=== PATIENT | male | born 1965 | race Caucasian/White ===

== ENCOUNTER 2018-02-17 18:46 | Emergency (ER) | payer MEDICAID ==
[~2018-02-17] VITALS: Ht 175.3 cm; Wt 77.1 kg
[2018-02-17 19:00] VITALS: BP 146/83
--- NOTE | 2018-02-17 19:00 | NUR ---
PT TO ER BED 12. BBRA 39 FROM A [facility] HOU[facility]: C/O BEING "TIRED" STATES TAKING 10 PILLS OF TYLENOL UNKNOWN DOSE. DENIES SI/HI. LAST HEROINE USE YESTERDAY. 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 VSS/RESP EVEN UNLABORED/NAD NOTED/SKIN WARM AND DRY/DENIES N-V-D/AFEBRILE/AOX4. AWAITING MD ROSE.
--- NOTE | 2018-02-17 19:05 | NUR ---
LAB AT BEDSIDE FOR DRAW.
[2018-02-17 19:13] LABS: BASOPHILS % (AUTO) 0.4 % (0.0-2.0); EOSINOPHILS % (AUTO) 1.9 % (0.0-6.0); HEMATOCRIT 36 % (39-51); LYMPHOCYTES % (AUTO) 23.5 % (20.0-44.0); MEAN CORPUSCULAR HGB CONC 34 g/dl (31.0-36.0); MEAN CORPUSCULAR VOLUME 79 fL (80-96); MONOCYTES # (AUTO) 0.5 /CMM (0.1-1.30); MONOCYTES % (AUTO) 5.8 % (2.0-12.0); NEUTROPHILS # (AUTO) 5.7 /CMM (1.8-8.9); NEUTROPHILS % (AUTO) 68.4 % (43.0-81.0); PLATELET COUNT (AUTO) 332 /CMM (150-450); RDW COEFFICIENT OF VARIATION 15.8 (11.5-15.0); RED BLOOD CELL COUNT(AUTO) 4.55 MIL/uL (4.5-6.0); WHITE BLOOD COUNT (AUTO) 8.4 K/uL (4.3-11.0)
--- NOTE | 2018-02-17 19:25 | NUR ---
XRAY AT BEDSIDE.
--- NOTE | 2018-02-17 19:29 | NUR ---
URINE SPECIMEN OBTAINED AND SENT TO THE LAB.
[2018-02-17 19:30] LABS: CALCIUM, SERUM 8.5 mg/dL (8.5-10.1); CARBON DIOXIDE 25 mmol/L (21-32); CHLORIDE 108 mmol/L (98-107); CREATININE 0.6 mg/dL (0.6-1.3); GLUCOSE 112 mg/dL (74-106); POTASSIUM 4.1 mmol/L (3.5-5.1); SODIUM SERUM 140 mmol/L (136-145); UREA NITROGEN, BLOOD 17 mg/dL (7-18)
[2018-02-17 19:44] LABS: ACETAMINOPHEN 101 ug/ml (10-30); ALANINE AMINOTRANSFERASE 21 U/L (12-78); ALBUMIN 2.9 g/dL (3.4-5.0); ALCOHOL, BLOOD < 3 mg/dL (0-0); ALKALINE PHOSPHATASE 103 U/L (46-116); ASPARTATE AMINOTRANSFERASE 11 U/L (15-37); BILIRUBIN,DIRECT 0.1 mg/dL (0.0-0.2); BILIRUBIN,TOTAL 0.4 mg/dL (0.2-1.0); TOTAL PROTEIN, SERUM 7.1 g/dL (6.4-8.2)
[2018-02-17 19:48] LABS: SALICYLATE 2.1 mg/dL (2.8-20.0)
--- NOTE | 2018-02-17 20:29 | NUR ---
PT AGRESSIVE AND ABUSIVE TO STAFF AND OTHER PATIENTS IN THE ER. PT FOUND WALKING AROUND ER AND ENTERING OTHER PATIENT AREAS. SECURITY CALLED PT REFUSED TO LEAVE. CURSING AT STAFF AND OTHER PATIENTS. PATIENT ESCORDED OFF THE PROPERTY.
[2018-02-17 20:38] LABS: APPEARANCE,URINE CLEAR (CLEAR); BILIRUBIN,URINE NEGATIVE (NEGATIVE); BLOOD, URINE NEGATIVE Ery/uL (NEGATIVE); COLOR,URINE YELLOW (YELLOW); KETONES,URINE NEGATIVE (NEGATIVE); LEUKOCYTE ESTERASE ,URINE NEGATIVE (NEGATIVE); NITRITE, URINE NEGATIVE (NEGATIVE); PH,URINE 7.5 (5.0-8.0); PROTEIN,URINE NEGATIVE (NEGATIVE); UGLUCOSE NEGATIVE (NEGATIVE); UROBILINOGEN,URINE 0.2 EU/dL (0.2)
== END 2018-02-17 20:33 | disposition left against medical advice (07) ==
LOC: ER 18:48
DX: T39.1X1A Poisoning by 4-Aminophenol derivatives, accidental (unintentional), initial encounter (principal); M25.561 Pain in right knee; Y92.89 Other specified places as the place of occurrence of the external cause
CPT/HCPCS: 36415; 73562; 80048-TC; 80076-TC; 80305; 81000-TC; 85025-TC; A4606; G0480; Z7610